=== PATIENT | female | born 1955 | race African-American/Black ===

== ENCOUNTER 2019-02-24 08:04 | Outpatient (CLI) | payer OTHER ==
--- NOTE | 2019-02-24 08:39 | ULT ---
BILATERAL CAROTID DUPLEX ULTRASOUND: HISTORY: History of cataracts and macular edema TECHNIQUE: Grayscale, color-flow and spectral Doppler ultrasound imaging of the extracranial carotid artery syst ems and vertebral arteries was performed bilaterally. FINDINGS: There is severe shadowing atherosclerotic plaque involving the common carotid arteries and internal c arotid arteries bilaterally. The peak systolic velocity in the right ICA measures 78.5 cm/s. The peak systolic velocity in the ri ght CCA measures 22.5 cm/s. The peak systolic velocity in the left ICA measures 10.5 cm/s. The peak systolic velocity in the l eft CCA measures 22.8 cm/s. The right IC/CC ration is3.49. The left IC/CC ratio is 0.46. Vertebral flow: antegrade, bilaterally. . IMPRESSION: Heavily limited examination due to severe shadowing atherosclerotic plaque involving the common carotid arteries and internal carotid arteries. There is a very minimal antegrade waveforms are demonstrated within the right common carotid artery and proximal mid right internal carotid arter y. Similar slow antegrade waveforms are seen within the left common carotid artery and proximal mid left internal carotid artery. Findings are suspicious for severe multifocal disease of the carotid sy stem. Dedicated CTA of the neck utilizing IV contrast is recommended for additional characterization.
== END 2019-02-24 08:05 | disposition home or self-care (01) ==
LOC: SCSULT 08:04
PROVIDERS: ATTEND Ophthalmology Retina Specialist
DX: H35.82 Retinal ischemia (principal); I65.23 Occlusion and stenosis of bilateral carotid arteries
CPT/HCPCS: 93880

== ENCOUNTER 2019-05-04 08:18 | Outpatient (CLI) | payer OTHER ==
[2019-05-04 09:09] LABS: Estimated GFR-MDRD - POC Greater than 90
--- NOTE | 2019-05-04 09:42 | CT ---
CT ANGIOGRAM OF THE NECK: HISTORY: Abnormal carotid ultrasound. Carotid blockage. COMPARISON: None. CORRELATION: Carotid ultrasound 02/24/2019. TECHNIQUE: CT angiogram of the head and neck is performed in the axial plane. Three-dimensional reformatted imag es are submitted for interpretation. FINDINGS: Visualized skull base and orbits are unremarkable. Adequate aeration of the visualized paranasal sinuses. Aerodigestive tract is patent. No obvious mucosal abnormality. Midline fatty raphae of the tongue is preserved. No obvious masses. Epiglottis has a normal caliber. Preepiglottic fat is preserved. Symmetric attenuation of the muscles of mastication and parapharyngeal fat. Symmetric attenuation of the submandibular gland and parotid gland. Unremarkable thyroid gland with minimal nonspecific nodularity. No evidence of lymphadenopathy by size criteria. Visualized paraspinal muscles are unremarkable. No cervical spine fracture. Straightening of cervical lordosis is presumed to be positional. No signi ficant central canal stenosis or significant foraminal narrowing. Upper mediastinum is unremarkable. There are chronic changes in the visualized lung parenchyma CT ANGIOGRAM: Aortic arch demonstrates atherosclerosis. Right carotid: The innominate artery origin has appropriate enhancement and luminal diameter. There i s calcified plaque without significant stenosis in the innominate artery. There is atherosclerosis with short segment mild narrowing involving the proximal right internal carotid artery. Linear fillin g defect is noted in the proximal to mid common carotid artery compatible with nonocclusive thrombus with resultant moderate stenosis. The mid to distal common carotid artery demonstrates absen ce of contrast opacification with extensive calcified plaque, compatible with carotid occlusion. There is enhancement involving the right carotid bifurcation, presumed to be due to collateral supply . The right internal carotid artery is slightly diminutive without evidence of high-grade stenosis. Left carotid: The left carotid artery origin has appropriate enhancement and luminal diameter. There is long segment moderate stenosis involving the proximal common carotid artery. There is short segment severe stenosis involving the proximal to mid common carotid artery due to eccentric noncalci fied plaque. There is a second focus of severe stenosis with regards to the mid common carotid artery. There is vascular occlusion of the distal common carotid artery due to calcified and noncalci fied plaque. There is recanalization of the carotid bifurcation and internal carotid artery. No significant stenosis of the visualized internal carotid artery. Bilateral cervical vertebral arteries are patent throughout their course in the neck. Subclavian ranjit felicia are patent. IMPRESSION: 1. Extensive calcified plaque involving both common carotid arteries with associated vascular occlusi on of bilateral mid to distal common carotid arteries. Recanalization of the left and right carotid bifurcation. No evidence of significant stenosis with regards to bilateral internal carotid arteries. 2. Long segment moderate stenosis involving the proximal left common carotid artery. 3. 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 Findings conveyed to Dr. Bonilla via [employer] [facility] 05/04/2019 at 10:44 AM Code CR Transcribed Date/Time: 05/04/2019 10:38 AM
[2019-05-04] MEDS ORDERED: Iopamidol 370 76% 100 ML VIAL ONE (14:55)
== END 2019-05-04 08:19 | disposition home or self-care (01) ==
LOC: CT 08:18
PROVIDERS: ATTEND Internal Medicine Cardiovascular Disease
DX: I65.23 Occlusion and stenosis of bilateral carotid arteries (principal)
CPT/HCPCS: 70498; 82565; Q9967